=== PATIENT | male | born 1985 | race Caucasian/White ===

== ENCOUNTER 2021-05-28 15:15 | Emergency (ER) | payer SELFPAY ==
[2021-05-28 15:37] VITALS: BP 163/117; PULSE 95; O2SAT 99
[2021-05-28] MEDS ORDERED: TORAdol 30 mg Injection ONE (15:51)
[2021-05-28] MEDS: TORAdol 30 mg Injection IM ONE (15:53)
--- NOTE | 2021-05-28 15:57 | ERPHSYRPT ---
- History of Present Illness Time Seen by Provider: 05/28/21 15:30 Source: patient Exam Limitations: no limitations Patient Subjective Stated Complaint: Pt fell off a ladder while doing guttering work and thinks his right arm got stuck in the ladder and injured his forearm just below the AC and he thinks his elbow is injured as well, he also hit his left ribs on the ladder which has caused swelling and trouble breathing Triage Nursing Assessment: Pt brought self to the ER, hypertensive, rates pain 9/10, right hand cold, weak pulse, swelling below the AC, swelling to the left ribs, denies LOC, denies hitting head Physician History: Patient is a 36-year-old male presents to our ED with complaints of left rib pain and right elbow pain. Patient states he was cleaning gutters. His ladder was leaning on a gutter. He states the gutter "gave way". The base of the ladder then slipped away from the house causing our patient to fall with a ladder. Patient fell approximately 10 to 15 feet. No BHT. No LOC. No neck pain. Patient was ambulatory at the scene. Patient drove his vehicle here to our ED. Patient ambulates with a normal gait. No back pain. Patient's only pain is left rib pain. Patient also complains of right elbow pain. The nurse documents faint pulses however this is an accurate. Patient has strong palpable pulses and are bilaterally equal. Cap refill less than 2 seconds. Compartments are soft. Patient's pain described as an ache that is localized. No radiation. Pain reproduced with palpation and improved with rest. Patient denies drug allergies. Patient is otherwise healthy. He voices no other complaints or concerns at this time. Timing/Duration: today Severity: moderate Modifying Factors: Improves With: movement Associated Symptoms: denies symptoms Allergies/Adverse Reactions: No Known Drug Allergies Allergy (Verified 05/28/21 15:36) Home Medications: Lorazepam [Ativan] 2 mg PO UD 05/28/21 [History] Nebivolol HCl 5 MG [Bystolic 5 MG] 5 mg PO DAILY 05/28/21 [History] Hx Tetanus, Diphtheria Vaccination/Date Given: No Travel Risk - International Travel Have you traveled outside of the country in past 3 weeks: No - Coronavirus Screening Are you exhibiting any of the following symptoms?: No Close contact with a COVID-19 positive Pt in past 14-21 Days: No - Vaccine Status Have you recieved a Covid-19 vaccination: No - Review of Systems Constitutional: No Symptoms, No Fever, No Chills Eyes: No Symptoms Ears, Nose, & Throat: No Symptoms Respiratory: No Symptoms, No Cough, No Dyspnea Cardiac: No Symptoms, No Chest Pain, No Edema, No Syncope Abdominal/Gastrointestinal: No Symptoms, No Abdominal Pain, No Nausea, No Vomiting, No Diarrhea Genitourinary Symptoms: No Symptoms, No Dysuria Musculoskeletal: No Symptoms, No Back Pain, No Neck Pain Skin: No Symptoms, No Rash Neurological: No Symptoms, No Dizziness, No Focal Weakness, No Sensory Changes Psychological: No Symptoms Endocrine: No Symptoms Hematologic/Lymphatic: No Symptoms Immunological/Allergic: No Symptoms All Other Systems: Reviewed and Negative - Past Medical History Pertinent Past Medical History: Yes Cardiac History: Hypertension Psycho-Social History: Anxiety - Past Surgical History Past Surgical History: Yes Musculoskeletal: Orthopedic Surgery - Social History Smoking Status: Never smoker Exposure to second hand smoke: No Drug Use: none Patient Lives Alone: No - Nursing Vital Signs Nursing Vital Signs: Initial Vital Signs Temperature 97.5 F 05/28/21 15:22 Pulse Rate 95 H 05/28/21 15:22 Blood Pressure 163/117 05/28/21 15:22 O2 Sat by Pulse Oximetry 99 05/28/21 15:22 Pain Scale Pain Intensity 9 - Physical Exam General Appearance: no apparent distress, alert Eye Exam: PERRL/EOMI, eyes nml inspection Ears, Nose, Throat Exam: normal ENT inspection, TMs normal, pharynx normal, moist mucous membranes Neck Exam: normal inspection, non-tender, supple, full range of motion Respiratory Exam: normal breath sounds, lungs clear, airway intact, No respiratory distress Cardiovascular Exam: regular rate/rhythm, normal heart sounds, normal peripheral pulses Gastrointestinal/Abdomen Exam: soft, normal bowel sounds, No tenderness, No mass Back Exam: normal inspection, normal range of motion, No CVA tenderness, No vertebral tenderness Extremity Exam: normal inspection, normal range of motion, pelvis stable Neurologic Exam: alert, oriented x 3, cooperative, normal mood/affect, sensation nml, No motor deficits Skin Exam: normal color, warm, dry, No rash Lymphatic Exam: No adenopathy SpO2 Interpretation: normal SpO2: 99 O2 Delivery: Room Air - Course Nursing assessment & vital signs reviewed: Yes - Radiology Exams Chest X-ray Interpretation: Teleradiologist Report (Portable chest demonstrates normal heart lungs and bony thorax.) Elbow X-ray Interpretation: Teleradiologist Report (Right elbow demonstrates normal bones articulation and soft tissues.) Forearm X-ray Interpretation: Teleradiologist Report (Right forearm shows no bony articular or soft tissue abnormalities.) Ribs X-ray Interpretation: Teleradiologist Report (Radiology x-ray of the left rib shows no bony articular or soft tissue abnormalities.) Ordered Tests: Active Orders 24 hr Category Date Time Status CHEST 1 VIEW (PORTABLE) Stat Exams 05/28/21 15:47 Completed ELBOW (2 VIEW) Stat Exams 05/28/21 15:39 Completed FOREARM Stat Exams 05/28/21 15:44 Completed RIBS UNILATERAL Stat Exams 05/28/21 15:52 Completed Medication Summary Discontinued Medications Generic Name Dose Route Start Last Admin Trade Name Freq PRN Reason Stop Dose Admin Ketorolac Tromethamine 30 mg 05/28/21 15:47 05/28/21 15:53 Ketorolac Tromethamine 30 Mg/Ml Inj IM 05/28/21 15:48 30 mg STAT ONE Administration Ketorolac Tromethamine Confirm 05/28/21 15:51 Ketorolac Tromethamine 30 Mg/Ml Inj Administered 05/28/21 15:52 Dose 30 mg .ROUTE .STK-MED ONE - Progress Progress: improved Progress Note: Patient reassessed. Pain much improved. Patient able to move and ambulate normally. Lungs are clear. Vitals are within normal limits. Patient requesting discharge. A right upper extremity sling was provided for comfort. Patient was given an incentive spirometer. X-rays are negative for fracture dislocation. Patient agrees to follow-up with primary care doctor within 48 hours for reevaluation. [id number] analgesics as necessary. Portions of this note were created with voice recognition technology. There may be grammatical, spelling, punctuation or sound alike errors 05/28/21 16:51 Counseled pt/family regarding: diagnosis, need for follow-up, rad results - Departure Departure Disposition: Home Clinical Impression: Fall, Rib contusion, Elbow contusion Condition: Stable Critical Care Time: No Referrals: Provider,Unknown [Primary Care Provider] - Follow up/PCP as directed Additional Instructions: Discharge/Care Plan STALIN GARCIA was seen on 05/28/21 in the Emergency Room. The patient was counseled regarding Diagnosis,Lab results, Imaging studies, need for follow up and when to return to the Emergency Room. Prescriptions given: Discharge Note I have spoken with the patient and/or caregivers. I have explained the patient's condition, diagnosis and treatment plan based on the information available to me at this time. I have answered the patient's and/or caregiver's questions and addressed any concerns. The patient and/or caregivers have as good understanding of the patient's diagnosis, condition and treatment plan as can be expected at this point. The vital signs have been stable. The patient's condition is stable and appropriate for discharge from the emergency department. The patient will pursue further outpatient evaluation with the primary care physician or other designated or consulting physician as outlined in the discharge instructions. The patient and/or caregivers are agreeable to this plan of care and follow-up instructions have been explained in detail. The patient and/or caregivers have received these instruction. The patient/and or caregivers are aware that any significant change in condition or worsening of symptoms should prompt an immediate return to this or the closest emergency department or call 911.
--- NOTE | 2021-05-28 16:33 | XRAY ---
Indication: Pain following fall. Comparison: None 2 view right forearm obtained. No bony, articular, or soft tissue abnormalities.
--- NOTE | 2021-05-28 16:33 | XRAY ---
Indication: Pain following fall. Comparison: None 2 view left ribs obtained. No bony, articular, or soft tissue abnormalities.
--- NOTE | 2021-05-28 16:33 | XRAY ---
Indication: Pain following fall. Comparison: None 3 view right elbow demonstrates normal bones, articulation, and soft tissues.
--- NOTE | 2021-05-28 16:37 | XRAY ---
Indication: Pain following fall. Comparison: None Portable chest demonstrates normal heart, lungs, and bony thorax.
== END 2021-05-28 17:18 | disposition home or self-care (01) ==
LOC: ED 15:15
DX: S50.01XA Contusion of right elbow, initial encounter (principal); S20.20XA Contusion of thorax, unspecified, initial encounter; W11.XXXA Fall on and from ladder, initial encounter; Y93.H9 Activity, other involving exterior property and land maintenance, building and construction; Y92.007 Garden or yard of unspecified non-institutional (private) residence as the place of occurrence of the external cause; I10 Essential (primary) hypertension
CPT/HCPCS: 71045; 71100; 73070; 73090; 96372; 99284; J1885